=== PATIENT | female | born 1960 | race Caucasian/White ===

== ENCOUNTER 2021-03-20 14:05 | Inpatient (IN) | payer MEDICARE ==
[~2021-03-20] VITALS: Ht 180.3 cm; Wt 104.3 kg
[2021-03-20 14:46] LABS: BASOPHILS ABSOLUTE AUTO 0.04 K/mm3 (0.00-0.23); BASOPHILS PERCENT AUTO 0 % (0-2); EOSINOPHILS ABSOLUTE AUTO 0.14 K/mm3 (0.00-0.68); EOSINOPHILS PERCENT AUTO 1 % (0-6); Hematocrit 46.5 % (33.0-51.0); Hemoglobin 14.8 g/dL (11.5-16.0); IMMATURE GRAN ABSOLUTE AUTO 0.03 K/mm3 (0.00-0.10); IMMATURE GRAN PERCENT AUTO 0 % (0-1); LYMPHOCYTES ABSOLUTE AUTO 1.14 K/mm3 (0.84-5.20); LYMPHOCYTES PERCENT AUTO 11 % (21-46); MONOCYTES ABSOLUTE AUTO 0.57 K/mm3 (0.16-1.47); MONOCYTES PERCENT AUTO 6 % (4-13); Mean Corpuscular HGB 30.5 pg (26.0-34.0); Mean Corpuscular HGB Conc 31.8 g/dL (31.5-36.5); Mean Corpuscular Volume 96 fL (80-100); Mean Platelet Volume 10.1 fL (9.1-12.4); NEUTROPHILS PERCENT AUTO 81 % (41-73); Platelet Count 152 K/mm3 (150-400); Red Blood Cell Count 4.85 M/mm3 (3.80-5.20); White Blood Cell Count 10.22 K/mm3 (4.00-11.30)
[2021-03-20 15:12] LABS: Anion Gap 3 mmol/L (6-16); Blood Urea Nitrogen 14 mg/dL (8-24); Bun/Creatinine Ratio 20.8 (12.0-20.0); CO2, Blood 30 mmol/L (21-32); Calcium, Blood 8.6 mg/dL (8.5-10.1); Chloride, Blood 108 mmol/L (98-108); Creatinine, Blood 0.67 mg/dL (0.40-1.00); Glomerular Filtration Rate >60 (60-); Glucose, Blood 131 mg/dL (70-99); Potassium, Blood 4.1 mmol/L (3.5-5.5); Sodium, Blood 141 mmol/L (136-145)
[2021-03-20 15:30] LABS: Influenza A, PCR NEGATIVE (NEGATIVE); Influenza B, PCR NEGATIVE (NEGATIVE); Resp Syncytial Virus, PCR NEGATIVE (NEGATIVE); SARS-Cov-2 (COVID-19) PCR, MMC NEGATIVE (NEGATIVE)
[2021-03-20] MEDS ORDERED: ALBU2.5V5 INH (18:14)
[2021-03-20] MEDS ORDERED: ANORO ELLIPTA1 EACH INH (18:15)
[2021-03-20] MEDS ORDERED: BREO ELLIPTA 21 EAC1 IH (18:16)
[2021-03-20] MEDS ORDERED: CELEXA40 M1 PO (18:17)
[2021-03-20] MEDS ORDERED: ALBU90OI INH (18:25)
[2021-03-20] MEDS ORDERED: BREO ELLIPTA 11 EAC1 IH (18:35)
--- NOTE | 2021-03-20 19:57 | NUR ---
PT IS WORRIED ABOUT URINATING LATER DUE TO PAIN. REASSURED HER THAT WE WILL DO EVERYTHING WE CAN TO MAKE IT EASY POSSIBLE. OFFERED PM CARE ITEMS CALL LIGHT WITHIN REACH
--- NOTE | 2021-03-20 23:07 | NUR ---
PT. TRIED VOIDING ON BEDPAN BUT CRIED FOR UNTOLERABLE PAIN WHEN TURNING FOR BEDPAN PLACEMENT, ATTENDS & PADS WERE PLACED IN THE FRONT & PUSHED A LITTLE BIT JUST TO BE ABLE TO CATCH THE URINE, 1 SOAKED PAD HANDED TO ME BY PT., OFFERED TO DO BLADDER SCAN & EXPLAINED ITS PURPOSE, PT. REFUSED & SAID " I'M OKAY, I NEVER HAD WATER ALL DAY", CN NOTIFIED.
--- NOTE | 2021-03-21 03:18 | NUR ---
TOLD PT. I AMGOING TO DO A BLADDER SCAN TO CHECK HOW MUCH URINE SHE HAS IN HER BLADDER, PT. STRONGLY REFUSED.
--- NOTE | 2021-03-21 04:45 | NUR ---
[address] SRINIVASAN OF PT'S COMPLAINTS OF L HIP PAIN OF 10 THAT RADIATES TO LLQ, VOIDED ONLY 1 SOAKED PAD DURING THE SHIFT & HAD BEEN REFUSING BLADDER SCAN, ABLE TO DO BLADDER SCAN RIGHT NOW WITH 47 ML, TELEPHONE ORDER RECEIVED TO GIVE FENTANYL 25 MCG X 1 DOSE, NO FURTHER ORDER RECEIVED, TORB.
--- NOTE | 2021-03-21 04:48 | NUR ---
OFFERED PT. FOR ME TO DO ANOTHER BLADDER SCAN THE PREVIOUS ONE MIGHT NOT BE ACCURATE RELATED TO PATIENT'S SO MUCH PAIN TO LLQ THAT PT. DID NOT WANT TO TOUCH THAT AREA, PT. STRONGLY REFUSED BLADDER SCAN.
[2021-03-21 05:08] LABS: BASOPHILS ABSOLUTE AUTO 0.04 K/mm3 (0.00-0.23); BASOPHILS PERCENT AUTO 0 % (0-2); EOSINOPHILS ABSOLUTE AUTO 0.17 K/mm3 (0.00-0.68); EOSINOPHILS PERCENT AUTO 2 % (0-6); Hematocrit 43.1 % (33.0-51.0); Hemoglobin 13.3 g/dL (11.5-16.0); IMMATURE GRAN ABSOLUTE AUTO 0.03 K/mm3 (0.00-0.10); IMMATURE GRAN PERCENT AUTO 0 % (0-1); LYMPHOCYTES ABSOLUTE AUTO 2.24 K/mm3 (0.84-5.20); LYMPHOCYTES PERCENT AUTO 21 % (21-46); MONOCYTES ABSOLUTE AUTO 1.19 K/mm3 (0.16-1.47); MONOCYTES PERCENT AUTO 11 % (4-13); Mean Corpuscular HGB 30.5 pg (26.0-34.0); Mean Corpuscular HGB Conc 30.9 g/dL (31.5-36.5); Mean Corpuscular Volume 99 fL (80-100); Mean Platelet Volume 10.3 fL (9.1-12.4); NEUTROPHILS PERCENT AUTO 66 % (41-73); Platelet Count 156 K/mm3 (150-400); RDW Coefficient Variation 13.2 % (11.7-14.2); RDW Standard Deviation 47.8 fL (35.1-46.3); Red Blood Cell Count 4.36 M/mm3 (3.80-5.20); White Blood Cell Count 10.77 K/mm3 (4.00-11.30)
[2021-03-21 05:32] LABS: Anion Gap 4 mmol/L (6-16); Blood Urea Nitrogen 24 mg/dL (8-24); Bun/Creatinine Ratio 26.2 (12.0-20.0); CO2, Blood 31 mmol/L (21-32); Calcium, Blood 8.6 mg/dL (8.5-10.1); Chloride, Blood 104 mmol/L (98-108); Creatinine, Blood 0.92 mg/dL (0.40-1.00); Glomerular Filtration Rate >60 (60-); Glucose, Blood 110 mg/dL (70-99); Potassium, Blood 4.4 mmol/L (3.5-5.5); Sodium, Blood 139 mmol/L (136-145)
--- NOTE | 2021-03-21 05:54 | NUR ---
PT. AOX4,COMPLAINTS OF L HIP PAIN MEDICATED PER EMAR & WAS DOING FINE UNTIL ABOUT 0400 THAT SHE COMPLAINTS OF 10/10 L HIP PAIN, DR. SRINIVASAN NOTIFIED, TELEPHONE ORDER OF FENTANYL 25 MCG IV X 1 RECEIVED & GIVEN RIGHT AWAY WHICH PER PT. DID NOT SEEM TO HELP WELL, AFTER 1 HR. PT. NOTED SLEEPING. NEW VASCULAR ACCESS PLACED TO LEFT HAND PREVIOUS IV ACCESS TO R HAND NOTED OUT OF VEIN. PT. VOIDED TWICE THROUGHOUT THE SHIFT VIA PADS PT. REFUSED USING A BEDPAN RELATED TO PAIN TO L HIP WHEN MOVING. ON BIOX, O2 SAT OF 94 & ABOVE WITH 3 - 4 L O2 VIA NC. DENIES SOB, NO OTHER ACUTE CHANGES NOTED.
--- NOTE | 2021-03-21 16:20 | NUR ---
SHIFT SUMMARY POD 0 L HIP NAILING. X2 AQUACEL IN PLACE, C/D/I. WBAT, UP TO BSC/CHAIR WELL W/ 2 PERSON ASSIST, FWW&GB. PAIN TOLERABLE AND MANAGED PER EMAR. A&O X4, VSS, 4L O2 VIA NC, BIOX ON, SATS >90%. TOLERATING PO WELL. VOIDING WELL/INCON W/ATTENDS IN PLACE. WILL REPORT TO ONCOMING RN.
--- NOTE | 2021-03-22 03:59 | NUR ---
SHIFT SUMMARY: PT. AOX4, REPORTS PAIN BEING MANAGED BETTER AFTER SURGERY, SEE EMAR. DENIES SOB & NO LABORED BREATHING NOTED, O2 SAT OF 93 & ABOVE WITH 4 L O2 VIA NC. NO ACUTE CHANGES NOTED. SLEPT WELL THROUGHOUT THE NIGHT.
[2021-03-22 04:08] LABS: Hematocrit 32.9 % (33.0-51.0); Hemoglobin 10.1 g/dL (11.5-16.0); Mean Corpuscular HGB 30.3 pg (26.0-34.0); Mean Corpuscular HGB Conc 30.7 g/dL (31.5-36.5); Mean Corpuscular Volume 99 fL (80-100); Platelet Count 128 K/mm3 (150-400); RDW Coefficient Variation 13.2 % (11.7-14.2); RDW Standard Deviation 47.2 fL (35.1-46.3); Red Blood Cell Count 3.33 M/mm3 (3.80-5.20); White Blood Cell Count 11.79 K/mm3 (4.00-11.30)
[2021-03-22 04:33] LABS: Anion Gap 1 mmol/L (6-16); Blood Urea Nitrogen 22 mg/dL (8-24); Bun/Creatinine Ratio 27.7 (12.0-20.0); CO2, Blood 35 mmol/L (21-32); Calcium, Blood 8.5 mg/dL (8.5-10.1); Chloride, Blood 103 mmol/L (98-108); Creatinine, Blood 0.79 mg/dL (0.40-1.00); Glomerular Filtration Rate >60 (60-); Glucose, Blood 130 mg/dL (70-99); Potassium, Blood 5.1 mmol/L (3.5-5.5); Sodium, Blood 139 mmol/L (136-145)
--- NOTE | 2021-03-22 17:24 | NUR ---
PATIENT CURRENTLY SITTING UP IN CHAIR AT BEDSIDE. NO SIGNS OR SYMPTOMS ACUTE DISTRESS NOTED, CALL LIGHT AND WATER IN EASY REACH, ABLE TO MAKE NEEDS AND WANTS KNOWN. PATIENT REMAINS OF 4L O2 PER NC, LUNG SOUNDS WITH EXP WHEEZED IN UPPER, DIMINISHED IN LOWER LOBES. SOB WITH EXERTION. PATIENT IS UP WITH ASSIST X 1 WITH GAIT BELT AND WALKER TO [facility] [place] AND CHAIR. PAITENT IS WBAT AQUACEL DRESSING TO LEFT HIP X 2 IS CDI. PATIENT HAS BEEN MEDICATED FOR PAIN WITH PO PAIN MEDS PER ORDERS, SEE EMAR. PAIN MEDS WERE EFFECTIVE. WILL CONTINUE TO MONITOR.
--- NOTE | 2021-03-23 03:45 | NUR ---
SHIFT SUMMARY: PT. AOX4, ON O2 4L VIA BC WITH O2 SAT ON HIGH 90S, BIOX ON AT BEDSIDE. COMPLAINTS OF L HIP PAINMEDICATED, SEE EMAR. INCONTINENT WITH BLADDER, ATTENDS ON. NO ACUTE CHANGES NOTED. WILL CONTINUE TO MONITOR.
[2021-03-23 04:49] LABS: Hemoglobin 9.3 g/dL (11.5-16.0); Mean Corpuscular HGB 30.5 pg (26.0-34.0); Mean Corpuscular Volume 98 fL (80-100); Mean Platelet Volume 9.7 fL (9.1-12.4); Platelet Count 123 K/mm3 (150-400); RDW Coefficient Variation 13.2 % (11.7-14.2); RDW Standard Deviation 46.9 fL (35.1-46.3); Red Blood Cell Count 3.05 M/mm3 (3.80-5.20); White Blood Cell Count 7.97 K/mm3 (4.00-11.30)
[2021-03-23 14:07] LABS: SARS-Cov-2 (COVID-19) Antigen Negative (NEGATIVE)
--- NOTE | 2021-03-23 14:15 | NUR ---
Pt. is alert and lying in bed. Pt. welcomes my visit. Pt. is unsettled about the prospect of being discharged to a nursing care facility. Normalize the Pt. experience. Establish rapport with pt. Pt. is a woman of [place]. Explore [place] and belief, and a short family history. Listen empathetically. Pt. displays evidence of agreement, and is very pleasant. [place] for Pt. Pt. verbalizes gratitude for the spiritual care visit.
--- NOTE | 2021-03-23 15:45 | NUR ---
PT TO [facility] VIA W/C. REPORT ATTEMPTED TO CALL 20 MINS AGO.
--- NOTE | 2021-03-23 16:39 | NUR ---
REPORT CALLED TO RADHA JOHNSTON
== END 2021-03-23 15:59 | DRG 482 ==
LOC: ER 14:05 → SURS 17:31
PROVIDERS: Emergency Medicine; Family Medicine; Internal Medicine; Orthopaedic Surgery; ADMIT Internal Medicine
PROC: 0QS736Z Reposition Left Upper Femur with Intramedullary Internal Fixation Device, Percutaneous Approach (ICD-10-PCS; principal; 2021-03-21 08:00)
DX: S72.142A Displaced intertrochanteric fracture of left femur, initial encounter for closed fracture (principal); F17.210 Nicotine dependence, cigarettes, uncomplicated; Z20.822 Contact with and (suspected) exposure to COVID-19; F32.A Depression, unspecified; I10 Essential (primary) hypertension; J44.9 Chronic obstructive pulmonary disease, unspecified; F41.9 Anxiety disorder, unspecified; E66.9 Obesity, unspecified; Z68.32 Body mass index [BMI] 32.0-32.9, adult; Z53.29 Procedure and treatment not carried out because of patient's decision for other reasons; Z79.899 Other long term (current) drug therapy; W18.39XA Other fall on same level, initial encounter; Y93.01 Activity, walking, marching and hiking; Y92.019 Unspecified place in single-family (private) house as the place of occurrence of the external cause
CPT/HCPCS: 0241U; 36415; 73502; 73560-LT; 80048; 85025; 85027; 87426; 94640; 94760; 94762; 96374; 96375; 96376; 97110; 97162; 97166; 97530; 97535; 99285-25; A9270; C1713; C9803; J0690; J1100; J1170; J1650; J1885; J2370; J2405; J2704; J3010; J7030